=== PATIENT | female | born 1985 | race Caucasian/White ===

== ENCOUNTER 2017-03-23 14:21 | Outpatient (CLI) | payer OTHER | END 2017-03-23 14:22 | disposition home or self-care (01) | LOC: SC 14:21 | PROVIDERS: ATTEND Specialist | DX: G47.30 Sleep apnea, unspecified (principal); R53.83 Other fatigue; R06.83 Snoring; R51 Headache | CPT/HCPCS: 99205; 99212 ==

== ENCOUNTER 2017-05-12 19:07 | Outpatient (CLI) | payer OTHER | END 2017-05-12 19:08 | disposition home or self-care (01) | LOC: SC 19:07 | PROVIDERS: ATTEND Specialist | DX: G47.61 Periodic limb movement disorder (principal); R06.83 Snoring | CPT/HCPCS: 95810 ==

== ENCOUNTER 2017-05-31 14:57 | Outpatient (CLI) | payer OTHER | END 2017-05-31 14:58 | disposition home or self-care (01) | LOC: SC 14:57 | PROVIDERS: ATTEND Nurse Practitioner Family | DX: G47.61 Periodic limb movement disorder (principal); R06.83 Snoring; G47.00 Insomnia, unspecified | CPT/HCPCS: 99212; 99214 ==

== ENCOUNTER 2017-07-05 11:29 | Outpatient (CLI) | payer OTHER | END 2017-07-05 11:30 | disposition home or self-care (01) | LOC: SC 11:29 | PROVIDERS: ATTEND Nurse Practitioner Family | DX: G47.00 Insomnia, unspecified (principal) | CPT/HCPCS: 99212; 99214 ==

== ENCOUNTER 2021-08-20 09:05 | Outpatient (CLI) | payer OTHER | END 2021-08-20 09:06 | disposition home or self-care (01) | LOC: DI 09:05 | PROVIDERS: ATTEND Nurse Practitioner Family | DX: R07.89 Other chest pain (principal); I51.7 Cardiomegaly | CPT/HCPCS: 93306 ==